=== PATIENT | female | born 1980 | race Caucasian/White ===

== ENCOUNTER 2024-06-22 10:40 | Emergency (ER) | payer OTHER, SELFPAY ==
[2024-06-22 10:46] VITALS: BP 123/91
[2024-06-22 11:11] LABS: COVID-19 Antigen Negative (Negative)
--- NOTE | 2024-06-22 11:34 | ED.GENMED ---
History of Present Illness
General
Chief Complaint: Throat Problem
Source: patient
Exam Limitations: none
Time Seen by Provider: 06/22/24 11:32
Nursing documentation reviewed up to this point in time: agreed with
History of Present Illness
History of Present Illness:
Patient is a 44-year-old female who presents to the ER for evaluation of worsening sore throat. Patient started with a sore throat yesterday. 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
up with significant swelling of the uvula worsening sore throat. She is drinking fluids but unable to eat. She had a fever up to 103. She denies any cough or shortness of breath.
She last took 800 mg of ibuprofen the reports was very difficult for her to swallow prior to arrival.
Review of Systems
Review of Systems
Allergies reviewed?: Yes
All Other Systems: ROS reviewed and negative except as documented in HPI and ROS
Constitutional: Reports fever and chills
EENT: Reports sore throat
Respiratory: Reports no symptoms
Cardiac: Reports no symptoms
ABD/GI: Reports no symptoms
Musculoskeletal: Reports no symptoms
Skin: Reports no symptoms
Neurological: Reports no symptoms
Psychiatric: Reports no symptoms
Phy Exam
General Physical Exam
General Presentation: no apparent distress
General age: appears stated age
General Skin: warm and dry
General Habitus: normal
General Mental: alert
ENT Exam
ENT Exam: EOMI, neck supple and other (uvula swollen and red, no obvious abscess or fullness to posterior pharynx no exudate pharynx is red no drooling no trismus + enlarged anterior cervical lymph nodes)
Cardiovascular Exam
Cardiovascular Exam: regular rate/rhythm, no murmur and normal peripheral pulses
Pulmonary Exam
Pulmonary Exam: lungs clear
Musculoskeletal Exam
Musculoskeletal Exam: full ROM
Skin Exam
Skin Exam: normal color and warm/dry
Psychiatric Exam
Psychiatric Exam: normal mood/affect
Sepsis
Sepsis Screening
Sepsis Assessment: Sepsis Ruled Out
Sepsis Screen
Sepsis Screen: Sepsis Ruled Out
Date: 06/22/24
Time: 13:28
Course
Orders/Labs/Results
Orders:
Orders
06/22/24 10:50
COVID-19 Antigen Urgent
Source: Nasal Swab
Influenza A+B Rapid Molecular Urgent
GEORGE Source: Nasal Swab
Specimen Description:
06/22/24 11:41
IV Insert/Care/Rem.- Treatment PRN
0.9% Sodium Chloride 1000 ml [Nss] 1,000 ml IV BOLUS
Acetaminophen 1000MG/100Ml [Ofirmev] 1,000 mg in 100 ml IV ONCE
Acetaminophen IV Indication:: Ileus/Delayed Bowel Func.
Dexamethasone Sod Phosphate [Decadron] 10 mg IV NOW STA
06/22/24 11:52
Complete Blood Count/With Diff Urgent
Comprehensive Metabolic Panel Urgent
Monotest Urgent
Rapid Strep Group A Urgent
GEORGE Source: Throat/Pharynx
Specimen Description:
Date Specimen was Collected: 06/22/24
Time Specimen was Collected: 11:47
06/22/24 12:35
Amoxicillin 875 mg/Clav 125 mg [Augmentin 875 mg/125 mg] 1 tablet PO NOW STA
Abnormal Lab Results
06/22/24
11:52
WBC 17.2 H 10^3/uL
(4.8-10.8)
Hct 36.7 L %
(37.0-47.0)
MPV 11.4 H fL
(7.4-10.4)
Abs Immat Gran (auto) 0.1 H 10^3/uL
(0-0.05)
Absolute Neuts (auto) 16.0 H 10^3/uL
(1.4-6.5)
Absolute Lymphs (auto) 0.2 L 10^3/uL
(1.2-3.4)
Absolute Monos (auto) 0.7 H 10^3/uL
(0.1-0.6)
Immature Gran % 0.7 H %
(0-0.5)
Neutrophils % 93.3 H %
(42.2-75.2)
Lymphocytes % 1.3 L %
(20.5-51.1)
Sodium 133 L mmol/L
(135-145)
Carbon Dioxide 21 L mmol/L
(22-30)
Glucose 131 H mg/dl
(70-99)
Total Protein 6.0 L g/dl
(6.3-8.2)
06/22/24 11:52
06/22/24 11:52
Vital Signs
Initial and Last Documented VS:
Initial Vital Signs
Temp Pulse Resp BP Pulse Ox
100.7 F H 98 16 123/91 100
06/22/24 10:46 06/22/24 10:46 06/22/24 10:46 06/22/24 10:46 06/22/24 10:46
Last Documented Vital Signs
Temp Pulse Resp BP Pulse Ox
100.7 F H 90 18 105/75 97
06/22/24 10:46 06/22/24 12:51 06/22/24 12:51 06/22/24 12:51 06/22/24 12:51
MDM/Problems Addressed
Differential Diagnosis Includes:
Not limited to pharyngitis, COVID, flu, influenza, mono
MDM/Problems Addressed:
Patient is a 44 female who presented with sore throat increasing redness and swelling of uvula today. 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 She is
nontoxic-appearing tolerate secretions well however has obvious redness to posterior pharynx and redness to the uvula with mild swelling. No trismus. Patient was found to be strep positive here negative COVID-negative flu negative mono. Elevated
white count at 17.2. Patient was given fluids Ofirmev Decadron feeling better she is tolerating secretions well.
Patient given first dose of Augmentin here in the ER will be stable for discharge home
*Critical Care Note
Total Time (30-74mins, 75-104mins- exclusive of procedures): Not Applicable
ED Attending Note
-
Portions of this chart may have been created with voice recognition software.� Occasional wrong word or��sound alike� substitutions may have occurred due to the inherent limitations of voice recognition software.
Discharge Plan
Departure
Patient Disposition: Home (Routine Discharge)
Date of Disposition: 06/22/24
Time of Disposition: 13:25
Patient with high blood pressure during this ER visit?: Yes
Condition: Fair
Covid-19: Not Applicable
Discharge Problem:
Strep throat
Instructions: Strep Throat (DC), BLOOD PRESSURE
Prescriptions:
New
amoxicillin-pot clavulanate 875-125 mg tablet
1 tab PO BID Qty: 20 0RF
Referrals:
Julio C Armando MD [Family Provider] -
Activity Restrictions/Additional Instructions:
As discussed stay well-hydrated , You May continue to take Tylenol for symptoms of fever and chills. You may continue your Medrol Dosepak. You were given the first dose of Augmentin here in the ER. A prescription was sent to your pharmacy. Take
twice a day for the next 10 days. Be sure to get plenty of rest. Follow-up with family doctor in the next several days return if any worsening of symptoms.
Interventions
Interventions:
ED- Fall Risk Assessment Last Done: 06/22/24 11:59
ED-EENT Assessment Last Done: 06/22/24 11:59
ED- Pulmonary Assessment Last Done: 06/22/24 11:59
Discharge Date and Time
Print Language: AUSTRALIAN
[2024-06-22] MEDS: DECADRON 10 MG IV (11:52)
[2024-06-22] MEDS: NSS 1000 IV (11:52)
[2024-06-22] MEDS: OFIRMEV 100 IV (11:53)
[2024-06-22 12:24] LABS: ALT (SGPT) 15 U/L (0-35); AST (SGOT) 23 U/L (14-36); Albumin 3.6 g/dl (3.5-5.0); Alkaline Phosphatase 57 U/L (38-126); Blood Urea Nitrogen 9 mg/dl (7-17); Calcium 8.5 mg/dl (8.4-10.2); Carbon Dioxide 21 mmol/L (22-30); Chloride 105 mmol/L (98-107); Glucose 131 mg/dl (70-99); Potassium 3.5 mmol/L (3.5-5.1); Sodium 133 mmol/L (135-145); Total Bilirubin 0.6 mg/dl (0.2-1.3); eGFR > 60.00
[2024-06-22 12:26] LABS: Hematocrit 36.7 % (37.0-47.0); Hemoglobin 12.4 g/dL (12.0-16.0); Mean Corp Hgb Conc. 33.8 g/dL (33.0-37.0); Mean Corpuscular Volume 82.8 fL (81.0-99.0); Mean Platelet Volume 11.4 fL (7.4-10.4); Platelet Count 167 10^3/uL (130-400); Red Blood Cell Count 4.43 10^6/uL (4.20-5.40); Red Cell Dist. Width 13.5 % (11.5-14.5); White Blood Cell Count 17.2 10^3/uL (4.8-10.8)
[2024-06-22 12:45] LABS: Monotest Negative (Negative)
[2024-06-22] MEDS: AUGMENTIN 875 MG/125 MG 1 TABLET PO (12:47)
[2024-06-22 12:51] VITALS: BP 105/75
[2024-06-22 13:05] LABS: % Basophils 0.3 % (0-2); % Eosinophils 0.2 % (0-6); % Immature Granulocytes 0.7 % (0-0.5); % Lymphocytes 1.3 % (20.5-51.1); % Monocytes 4.2 % (1.7-9.3); % Neutrophils 93.3 % (42.2-75.2); Absolute Basophils 0.1 10^3/uL (0-0.2); Absolute Immature Granulocytes 0.1 10^3/uL (0-0.05); Absolute Lymphocytes 0.2 10^3/uL (1.2-3.4); Absolute Monocytes 0.7 10^3/uL (0.1-0.6); Nucleated Red Blood Cells % 0 %
== END 2024-06-22 13:42 | disposition home or self-care (01) ==
LOC: EMR 10:40
PROVIDERS: Nurse Practitioner; Student in an Organized Health Care Education/Training Program; EMERGENCY PHYSICIAN Student in an Organized Health Care Education/Training Program; FAMILY PHYSICIAN Family Medicine
DX: J02.0 Streptococcal pharyngitis (principal)
CPT/HCPCS: 99283; 96374; 96375; 96361; 80053; 85025; 86308; 87070; 87147; 87502; 87811; 87880